=== PATIENT | male | born 1990 | race Hispanic/Latino ===

== ENCOUNTER 2018-07-08 20:29 | Emergency (ER) | payer BC, SELFPAY ==
--- NOTE | 2018-07-08 21:19 | RAD ---
Exam: Left hand 3 views: HISTORY: Dogbite, injury Findings and impression: No fracture or dislocation or abnormal opaque foreign body or other significant acute process.
--- NOTE | 2018-07-08 21:20 | RAD ---
Exam: Left wrist 3 views: HISTORY: Dog bite, injury Findings and impression: No fracture, dislocation, foreign body, or other acute process.
--- NOTE | 2018-07-08 21:20 | RAD ---
Exam: Left forearm 2 views: HISTORY: Gallbladder the left forearm, injury Findings and impression: Lateral soft tissue injury is noted of the mid forearm. No fracture, dislocation, abnormal foreign hebert dy or other acute process.
[2018-07-08] MEDS ORDERED: Ketorolac Tromethamine 30 MG/ML VIAL ONE (21:31)
== END 2018-07-08 22:02 | disposition home or self-care (01) ==
LOC: ERS 20:29
DX: S51.852A Open bite of left forearm, initial encounter (principal); S51.812A Laceration without foreign body of left forearm, initial encounter; W54.0XXA Bitten by dog, initial encounter
CPT/HCPCS: 96372; J1885

== ENCOUNTER 2020-01-24 10:16 | Emergency (ER) | payer BC ==
[2020-01-24 18:25] LABS: SARS-CoV-2 MS2 Positive; SARS-CoV-2 N Gene Negative; SARS-CoV-2 S Gene Negative; SARS-CoV-2 by NAA Not Detected (NotDetected); SARS-CoV-2 orf1ab Negative
== END 2020-01-24 11:30 | disposition home or self-care (01) ==
LOC: ERS 10:16
DX: R51.9 Headache, unspecified (principal); Z20.828 Contact with and (suspected) exposure to other viral communicable diseases
CPT/HCPCS: 87635; 99284; U0003

== ENCOUNTER 2024-11-17 12:20 | Outpatient (CLI) | payer BC | END 2024-11-17 12:21 | disposition home or self-care (01) | LOC: BICRAD 12:20 | PROVIDERS: ATTEND Physician Assistant | DX: M54.50 Low back pain, unspecified (principal); M47.816 Spondylosis without myelopathy or radiculopathy, lumbar region | CPT/HCPCS: 72110 ==